=== PATIENT | female | born 1935 | race Caucasian/White ===

== ENCOUNTER 2018-12-29 15:28 | Outpatient (CLI) | payer MEDICARE, MEDICAID ==
[2018-12-29 19:42] LABS: ALANINE AMINOTRANSFERASE 36 U/L (12-78); ALBUMIN 3.8 g/dL (3.4-5.0); ALKALINE PHOSPHATASE 81 U/L (46-116); ASPARTATE AMINOTRANSFERASE 38 U/L (15-37); BILIRUBIN,TOTAL 0.5 mg/dL (0.2-1.0); CALCIUM, SERUM 10.2 mg/dL (8.5-10.1); CARBON DIOXIDE 27 mmol/L (21-32); CHLORIDE 97 mmol/L (98-107); CREATININE 1.5 mg/dL (0.6-1.3); GLUCOSE 95 mg/dL (74-106); POTASSIUM 3.9 mmol/L (3.5-5.1); SODIUM SERUM 137 mmol/L (136-145); TOTAL PROTEIN, SERUM 7.9 g/dL (6.4-8.2); UREA NITROGEN, BLOOD 35 mg/dL (7-18)
== END 2018-12-29 23:59 | disposition home or self-care (01) ==
LOC: LAB 15:28
PROVIDERS: ATTEND Internal Medicine Interventional Cardiology
DX: I10 Essential (primary) hypertension (principal)
CPT/HCPCS: 36415; 80053-TC

== ENCOUNTER 2019-01-12 12:02 | Outpatient (CLI) | payer MEDICARE, MEDICAID ==
[2019-01-12 12:55] LABS: ALANINE AMINOTRANSFERASE 21 U/L (12-78); ALBUMIN 3.5 g/dL (3.4-5.0); ALKALINE PHOSPHATASE 92 U/L (46-116); ASPARTATE AMINOTRANSFERASE 12 U/L (15-37); BILIRUBIN,TOTAL 0.3 mg/dL (0.2-1.0); CALCIUM, SERUM 9.7 mg/dL (8.5-10.1); CARBON DIOXIDE 24 mmol/L (21-32); CHLORIDE 101 mmol/L (98-107); CREATININE 1.3 mg/dL (0.6-1.3); GLUCOSE 167 mg/dL (74-106); POTASSIUM 4.1 mmol/L (3.5-5.1); SODIUM SERUM 137 mmol/L (136-145); TOTAL PROTEIN, SERUM 7.6 g/dL (6.4-8.2); UREA NITROGEN, BLOOD 16 mg/dL (7-18)
== END 2019-01-12 23:59 | disposition home or self-care (01) ==
LOC: LAB 12:02
PROVIDERS: ATTEND Internal Medicine Interventional Cardiology
DX: I10 Essential (primary) hypertension (principal)
CPT/HCPCS: 36415; 80053-TC

== ENCOUNTER 2020-06-08 00:14 | Inpatient (IN) | payer MEDICARE, OTHER ==
[~2020-06-08] VITALS: Ht 165.1 cm; Wt 72.6 kg
[2020-06-08] MEDS ORDERED: DILTIAZEM HCL 25 MG IV ONE (00:28)
[2020-06-08] MEDS ORDERED: DILTIAZEM HCL 50 MG IV IV ONE (00:30)
--- NOTE | 2020-06-08 00:34 | NUR ---
[facility] [phone]
[2020-06-08 00:37] LABS: ABG BASE EXCESS -6.6 mmol/L; ABG OXYGEN SATURATION 95.2 % (92.0-98.5); ABG PCO2 24.7 mmHg (35.0-45.0); ABG PH 7.429 (7.350-7.450); ABG PO2 81.4 mmHg (75.0-100.0); AaDO2 606.9 mmHg; COHb 0.4 % (0.5-1.5); MetHb 0.2 % (0.0-1.5); O2Hb 94.6 % (94.0-97.0); SITE, ABG Right Radial; VENT MODE, BG 15 L NRB
[2020-06-08 00:37] LABS: BASOPHILS % (AUTO) 0.2 % (0.0-2.0); EOSINOPHILS % (AUTO) 0.1 % (0.0-6.0); HEMATOCRIT 39 % (33-45); HEMOGLOBIN 12.3 g/dL (11.5-14.8); LYMPHOCYTES # (AUTO) 2.1 /CMM (0.8-4.8); LYMPHOCYTES % (AUTO) 18.2 % (20.0-44.0); MEAN CORPUSCULAR HGB CONC 32 g/dl (31.0-36.0); MEAN CORPUSCULAR VOLUME 80 fL (82-100); MONOCYTES # (AUTO) 0.6 /CMM (0.1-1.30); MONOCYTES % (AUTO) 5.6 % (2.0-12.0); NEUTROPHILS # (AUTO) 8.8 /CMM (1.8-8.9); NEUTROPHILS % (AUTO) 75.9 % (43.0-81.0); PLATELET COUNT (AUTO) 270 /CMM (150-450); WHITE BLOOD COUNT (AUTO) 11.6 K/uL (4.3-11.0)
--- NOTE | 2020-06-08 00:39 | NUR ---
PATIENT'S BLOOD, CULTURES, COVID PCR, COVID ANTIGEN, RAPID INFLUENZA SWAB, AND URINE COLLECTED AND SENT TO THE LAB.
--- NOTE | 2020-06-08 00:50 | NUR ---
PATIENT CAME TO ER BED 5 C/O SOB WITH 70% OXYGEN SATURATION ON ROOM AIR IN THE FIELD. PATIENT IS PLACED ON NON-REBREATHER UPON ARRIVAL. PATIENT'S 2 FAMILY MEMBERS ARE POSITIVE FOR CORONAVIRUS. FOR PATIENT IS SAUTRATING AT 97% ON NON-REBREATHER. PATIENT IS BREATHING EVENLY AND UNLABORED W/ NO C/O. PATIENT IS AAOX4. PATIENT IS CONNECTED TO THE MONITOR.
--- NOTE | 2020-06-08 01:16 | NUR ---
Call from lab. Rapid covid positive.
[2020-06-08 01:30] LABS: CALCIUM, SERUM 9.2 mg/dL (8.5-10.1); CARBON DIOXIDE 19 mmol/L (21-32); CHLORIDE 97 mmol/L (98-107); CREATININE 1.3 mg/dL (0.6-1.3); GLUCOSE 205 mg/dL (74-106); POTASSIUM 3.8 mmol/L (3.5-5.1); SODIUM SERUM 135 mmol/L (136-145); UREA NITROGEN, BLOOD 19 mg/dL (7-18)
[2020-06-08 01:44] LABS: ALANINE AMINOTRANSFERASE 22 U/L (12-78); ALBUMIN 3.2 g/dL (3.4-5.0); ALKALINE PHOSPHATASE 96 U/L (46-116); ASPARTATE AMINOTRANSFERASE 31 U/L (15-37); B-TYPE NATRIURETIC PEPTIDE 1716 PG/ML (0-125); BILIRUBIN,TOTAL 0.5 mg/dL (0.2-1.0); TOTAL PROTEIN, SERUM 7.9 g/dL (6.4-8.2)
--- NOTE | 2020-06-08 04:40 | NUR ---
PATIENT IS AWAKE, ASKING FOR WATER AND BLANKET. PATIENT IS BREATHING EVENLY AND UNLABROED ON 15L OF NRB. CONNECTED TO MONITOR. WILL CONTINUE TO MONITOR CLOSELY
[2020-06-08 05:06] LABS: BILIRUBIN,DIRECT 0.3 mg/dL (0.0-0.2)
--- NOTE | 2020-06-08 06:41 | NUR ---
PATIENT IS AWAKE. VSS. CONNECTED TO MONITOR. WILL CONTINUE TO MONITOR CLOSELY.
[2020-06-08 06:57] LABS: BILIRUBIN,URINE NEGATIVE (NEGATIVE); COLOR,URINE YELLOW (YELLOW); LEUKOCYTE ESTERASE ,URINE NEGATIVE (NEGATIVE); NITRITE, URINE NEGATIVE (NEGATIVE); PH,URINE 5.5 (5.0-8.0); PROTEIN,URINE TRACE mg/dl (NEGATIVE); UGLUCOSE NEGATIVE (NEGATIVE); UROBILINOGEN,URINE 0.2 EU/dL (0.2)
[2020-06-08] MEDS ORDERED: HYDROCODONE/APAP 5/325MG TABLET PO PRN (07:00)
[2020-06-08] MEDS ORDERED: MAG HYDROX/AL HYDROX/SIMETH 30 ML UDC PO PRN (07:00)
[2020-06-08] MEDS ORDERED: ACETAMINOPHEN 325 MG TABLET PO PRN (07:00)
[2020-06-08] MEDS ORDERED: Z GUARD REMEDY 2 OZ OINT TP PRN (07:00)
[2020-06-08] MEDS ORDERED: ZOLPIDEM TARTRATE 5 MG TABLET PO PRN (07:00)
[2020-06-08] MEDS ORDERED: ONDANSETRON HCL/PF 4 MG/2 ML VIAL IVP PRN (07:00)
[2020-06-08] MEDS ORDERED: MAGNESIUM HYDROXIDE 30 ML UDC PO PRN (07:00)
[2020-06-08 07:14] LABS: BACTERIA,URINE None seen /HPF (None Seen); RBC,URINE NONE SEEN /HPF (0-2); SQUAMOUS EPITHELIAL CELL,UR Few /HPF (None Seen); WBC,URINE NONE SEEN /HPF (0-3)
--- NOTE | 2020-06-08 07:59 | NUR ---
REPORT GIVEN TO DENG ESPOSITO FOR LUCI.
[2020-06-08] MEDS ORDERED: CEFEPIME 2 GM in IV D5W 100 ML IV SCH (08:00)
[2020-06-08] MEDS: DEXAMETHASONE SOD PHOSPHATE 4 MG/ML VIAL IV SCH (08:39)
--- NOTE | 2020-06-08 08:41 | NUR ---
COLLECTIONS ASSISTANT AT BEDSIDE FOR ECHOCARDIOGRAM
[2020-06-08] MEDS: DOXYCYCLINE HYCLATE (100 MG) 100 MG TABLET PO SCH ×2 (08:43→22:04)
[2020-06-08] MEDS ORDERED: APIXABAN 5 MG TABLET PO SCH (09:00)
[2020-06-08] MEDS: ASPIRIN EC 81 MG TABLET.DR PO SCH (09:04)
[2020-06-08] MEDS ORDERED: METF-440 PO (09:37)
[2020-06-08] MEDS ORDERED: RIVA10TA PO (09:37)
[2020-06-08] MEDS ORDERED: POTA10CA43 PO (09:37)
[2020-06-08] MEDS ORDERED: TIOT18CA3 IH (09:37)
[2020-06-08] MEDS ORDERED: LOSA100T31 PO (09:37)
[2020-06-08] MEDS ORDERED: DILT-2 PO (09:37)
[2020-06-08] MEDS ORDERED: GLIP5TAB13 PO (09:37)
[2020-06-08] MEDS ORDERED: FURO-145 PO (09:37)
[2020-06-08] MEDS ORDERED: FLUT1BLS IH (09:37)
[2020-06-08] MEDS ORDERED: VANCOMYCIN 1 GM in IV D5W 250ml IV SCH (10:00)
[2020-06-08] MEDS ORDERED: DEXTROSE 50%-WATER 50 ML DISP.SYRIN IV PRN (12:00)
[2020-06-08] MEDS: DILTIAZEM HCL IV 125 MG in IV NS 0.9% 100 ML IV PRN (12:27)
--- NOTE | 2020-06-08 12:28 | NUR ---
ASSUMED CARE. MEDICATED PER MD ORDER, PT JESSICA WELL. WILL CONT TO MONITOR.
--- NOTE | 2020-06-08 12:30 | NUR ---
CALLED PHARMACY FOR MEDS
[2020-06-08 13:03] LABS: BASOPHILS % (AUTO) 0.1 % (0.0-2.0); HEMATOCRIT 37 % (33-45); HEMOGLOBIN 12.2 g/dL (11.5-14.8); LYMPHOCYTES # (AUTO) 0.3 /CMM (0.8-4.8); LYMPHOCYTES % (AUTO) 3.6 % (20.0-44.0); MEAN CORPUSCULAR HGB CONC 33 g/dl (31.0-36.0); MEAN CORPUSCULAR VOLUME 79 fL (82-100); MONOCYTES # (AUTO) 0.2 /CMM (0.1-1.30); MONOCYTES % (AUTO) 2.3 % (2.0-12.0); NEUTROPHILS # (AUTO) 8.3 /CMM (1.8-8.9); PLATELET COUNT (AUTO) 212 /CMM (150-450); RED BLOOD CELL COUNT(AUTO) 4.68 MIL/uL (4.0-5.2); WHITE BLOOD COUNT (AUTO) 8.8 K/uL (4.3-11.0)
[2020-06-08] MEDS: BLOOD SUGAR DIAGNOSTIC 1 EACH STRIP IN SCH ×3 (13:27→22:04)
[2020-06-08] MEDS ORDERED: IPRATROPIUM NEB FS 0.5 MG/2.5 ML AMPUL.NEB NEB SCH (13:30)
--- NOTE | 2020-06-08 13:30 | NUR ---
called pharmacy for meds.
[2020-06-08 14:26] LABS: CREATININE 0.9 mg/dL (0.6-1.3); POTASSIUM 4.1 mmol/L (3.5-5.1)
[2020-06-08] MEDS: LOSARTAN POTASSIUM 50 MG TABLET PO SCH (15:07)
[2020-06-08] MEDS: IPRATROPIUM BROMIDE 14 GM INHALER (or 12.9 GM) IH SCH ×2 (15:09→19:47)
[2020-06-08] MEDS: INSULIN REGULAR, HUMAN 100 UNIT/ML 3 ML VIAL SQ PRN ×3 (15:09→22:16)
--- NOTE | 2020-06-08 15:11 | NUR ---
PLACED ON HI IFEOMA 40L PER ERMD ORDER, PT JESSICA WELL. WILL CONT TO MONITOR.
--- NOTE | 2020-06-08 17:15 | NUR ---
PT AWAKE, ON HI IFEOMA JESSICA WELL. WILL CONT TO MONITOR.
--- NOTE | 2020-06-08 19:12 | NUR ---
PT AWAKE, DRINKING WATER, WILL CONT TO MONITOR.
[2020-06-08] MEDS: DILTIAZEM HCL 30 MG TABLET PO SCH (20:00)
--- NOTE | 2020-06-08 20:10 | NUR ---
report given to Jerry
--- NOTE | 2020-06-08 20:46 | NUR ---
PT WAS TRANSFERED TO 110 UNDER ACLS
[2020-06-08 21:00] VITALS: BP 142/80
[2020-06-08 22:00] VITALS: BP 130/79
--- NOTE | 2020-06-08 22:00 | NUR ---
cardizem op not given because pt is on cardizem drip at this moment will cont to monitor
[2020-06-08 23:00] VITALS: BP 149/81
[2020-06-09] VITALS (21 sets, daily range): BP systolic 104–170; BP diastolic 58–91
[2020-06-09] MEDS: DILTIAZEM HCL IV 125 MG in IV NS 0.9% 100 ML IV PRN (00:58)
[2020-06-09] MEDS: IPRATROPIUM BROMIDE 14 GM INHALER (or 12.9 GM) IH SCH ×4 (01:30→19:30)
[2020-06-09] MEDS: DILTIAZEM HCL 30 MG TABLET PO SCH ×3 (02:00→10:34)
--- NOTE | 2020-06-09 02:30 | NUR ---
CARDIZEM NOT GIVEN BECAUSE PT STILL ON CARDIZEM DRIP WILL CONT TO MONITOR
--- NOTE | 2020-06-09 07:20 | NUR ---
RN CLOSING NOTES PATIENT IB BED SLEEPING, EASILY AROUSABLE BY VERBAL STIMULI. ABLE TO MAKE NEEDS KNOWN. CONTINUE ON NONREBREATHER AND HIGH FLOW O2 AT 40 L FIO2 100 %. SATING AT 94 %. NO RESPIRATORY DISTRESS NOTED. DENIES ANY PAIN. ON TELE MONITOR, AFIB HR 88. PATIENT CONTINUE ON CARDIZEM DRIP 7.5 CC/HR. VS STABLE. AMAYA CATHETER INDWELLING WELL, PATENT AND IN PLACE. WITH CLEAR URINE OUTPUT. ALL SAFETY MEASURES WERE IMPLEMENTED PER PROTOCOL. SIDE RAILS UP X 2. BED LOCKED IN LOWEST POSITION. CALL LIGHT WITHIN REACH. ENDORSED TO NEXT SHIFT NURSE FOR LUCI.
[2020-06-09 07:28] LABS: BASOPHILS % (AUTO) 0.3 % (0.0-2.0); EOSINOPHILS % (AUTO) 0.9 % (0.0-6.0); HEMATOCRIT 38 % (33-45); HEMOGLOBIN 12.3 g/dL (11.5-14.8); LYMPHOCYTES # (AUTO) 0.5 /CMM (0.8-4.8); LYMPHOCYTES % (AUTO) 4.2 % (20.0-44.0); MEAN CORPUSCULAR HGB CONC 33 g/dl (31.0-36.0); MEAN CORPUSCULAR VOLUME 79 fL (82-100); MONOCYTES # (AUTO) 0.6 /CMM (0.1-1.30); MONOCYTES % (AUTO) 4.8 % (2.0-12.0); NEUTROPHILS # (AUTO) 10.6 /CMM (1.8-8.9); NEUTROPHILS % (AUTO) 89.8 % (43.0-81.0); PLATELET COUNT (AUTO) 263 /CMM (150-450); RED BLOOD CELL COUNT(AUTO) 4.75 MIL/uL (4.0-5.2); WHITE BLOOD COUNT (AUTO) 11.8 K/uL (4.3-11.0)
[2020-06-09 07:45] LABS: CREATININE 0.8 mg/dL (0.6-1.3); MAGNESIUM 2.3 mg/dL (1.8-2.4); PHOSPHORUS 2.9 mg/dL (2.5-4.9)
--- NOTE | 2020-06-09 08:00 | NUR ---
ICU MIKE CASTLE RN NOTE PATIENT IN BED WITH HIGH FLOEW AND NONREBREATHER MASK SATURATION 87% DR PANG NOTIFIED ON TELE MONITOR AFIB 102 DR SÁNCHEZ NOTIFIED RT AC HL INTACT LT HAND INTACT , ON CARDIZEM DRIP ORDERED PER DR SÁNCHEZ OK TO GIVE CARDIZEM PO ALERT ORIENTED X4 BED IN LOWEST AND LOCKED POSITION , WILL MONITOR
[2020-06-09 08:03] LABS: CALCIUM, SERUM 9.3 mg/dL (8.5-10.1)
[2020-06-09 08:53] LABS: ABG BASE EXCESS -1.9 mmol/L; ABG OXYGEN SATURATION 84.3 % (92.0-98.5); ABG PCO2 30.6 mmHg (35.0-45.0); ABG PH 7.455 (7.350-7.450); ABG PO2 46.9 mmHg (75.0-100.0); AaDO2 635.5 mmHg; COHb 0.3 % (0.5-1.5); MetHb 0.3 % (0.0-1.5); O2Hb 83.8 % (94.0-97.0); SITE, ABG Right Radial; VENT MODE, BG HFNC 40L 100% +NRB
[2020-06-09] MEDS ORDERED: FUROSEMIDE 20 MG TABLET PO SCH (09:00)
[2020-06-09] MEDS: FLUTICASONE/VILANTEROL 1 EACH BLST.W.DEV IH SCH (09:00)
[2020-06-09] MEDS ORDERED: TIOTROPIUM BROMIDE 6 CAP/BOX CAP.W.DEV IH SCH (09:00)
[2020-06-09] MEDS: ASPIRIN EC 81 MG TABLET.DR PO SCH (09:15)
[2020-06-09] MEDS: DOXYCYCLINE HYCLATE (100 MG) 100 MG TABLET PO SCH ×2 (09:15→21:34)
[2020-06-09] MEDS: DEXAMETHASONE SOD PHOSPHATE 4 MG/ML VIAL IV SCH (09:15)
[2020-06-09] MEDS: LOSARTAN POTASSIUM 50 MG TABLET PO SCH (09:16)
[2020-06-09] MEDS: BLOOD SUGAR DIAGNOSTIC 1 EACH STRIP IN SCH ×4 (09:48→21:33)
--- NOTE | 2020-06-09 10:00 | NUR ---
ICU OVER FLOW RN NOTE ABG DONE DR PANG AWARE RESULT STILL SATURATION 78%ASSITED TO BE ON SIDE
--- NOTE | 2020-06-09 10:44 | NUR ---
ICU OVER FLOW RN NOTE PER DR GARG ASBESTOS CLOTH INSPECTOR OK TO GIVE CARDIZEM AWARE TROPONIN 1.435
[2020-06-09] MEDS ORDERED: AMIODARONE 150 MG in IV D5W 100 ML IV ONE (11:00)
--- NOTE | 2020-06-09 11:12 | NUR ---
marilyn whitaker informed of (+) pcr
[2020-06-09 11:21] LABS: ABG BASE EXCESS -1.6 mmol/L; ABG OXYGEN SATURATION 83.7 % (92.0-98.5); ABG PCO2 32.4 mmHg (35.0-45.0); ABG PH 7.443 (7.350-7.450); ABG PO2 45.8 mmHg (75.0-100.0); AaDO2 634.8 mmHg; COHb 0.4 % (0.5-1.5); MetHb 0.3 % (0.0-1.5); O2Hb 83.1 % (94.0-97.0); SITE, ABG Right Radial; VENT MODE, BG HFNC 40L 100% +NRB
[2020-06-09] MEDS: FUROSEMIDE 20 MG/2 ML VIAL IV SCH ×2 (11:33→17:06)
[2020-06-09] MEDS ORDERED: HEPARIN INFUSION/D5W 500 ML IV PRN (13:00)
[2020-06-09] MEDS: INSULIN REGULAR, HUMAN 100 UNIT/ML 3 ML VIAL SQ PRN ×3 (13:13→21:39)
[2020-06-09] MEDS: AMIODARONE 450 MG in IV D5W 250 ML IV PRN ×2 (13:37→23:55)
--- NOTE | 2020-06-09 13:59 | NUR ---
ICU OVER FLOW RN NOTE CALLED X3 FOR INHALER SPOKE WITH PHARMACY STILL DID NOT BRING IT
--- NOTE | 2020-06-09 14:15 | NUR ---
ICU OVER FLOW DR SÁNCHEZ NOTIFIED TROP 1.730 WITH ORDER HEPARIN DRIP AND AMIODARONE DRIP WILL START Addendum: 06/09/20 at 1710 by KATHERYN SHER RN [address] SÁNCHEZ NO BOLUS FOR HEPARIN WILL START DRIP PER PROTOCOL
[2020-06-09] MEDS ORDERED: REMDESIVIR (CHARGED) 200 MG, *LOADING DOSE 1 EA in IV NS 0.9% 210 ML IV ONE (16:00)
[2020-06-09] MEDS ORDERED: RIVAROXABAN 15 MG TABLET PO SCH (17:00)
--- NOTE | 2020-06-09 17:14 | NUR ---
RESEEVIR NOT ARABLE YET Addendum: 06/09/20 at 1745 by KATHERYN SHER RN called again pharmacy rezedvir not avalable yet
[2020-06-09] MEDS ORDERED: CEFTRIAXONE 1 G in IV D5W 50 ML IV SCH (19:00)
[2020-06-09] MEDS ORDERED: CEFAZOLIN 0 GM ONE (19:30)
--- NOTE | 2020-06-09 19:33 | NUR ---
n agricultural equipment sales engineer note overflow with high flow of o2, saturation 80% will cont to encourage to be on side
[2020-06-09] MEDS ORDERED: CEFTRIAXONE 1 G VIAL ONE (19:34)
--- NOTE | 2020-06-09 23:00 | NUR ---
ICU-OF/STUDIO OPERATOR SPOKE WITH DR. DE LA O GAVE UPDATE ON PTS STATUS. MAXED OUT ON HIGH FLOW 40L/MIN 100% FIO2 WITH NON-REBREATHER. ORDERS GIVEN TO INTUBATE PT WITH VENT SETTINGS. DR. PLASENCIA AT BEDSIDE. DR. PLASENCIA WANTED ABG FOR COMPARISON AND SPOKE WITH THE PT REGARDING INTUBATION WITH GERARDO RT TO TRANSLATE. PT NOT AGREEABLE WITH INTUBATION AT THIS TIME. PT REPOSITIONED SATURATION CAME UP TO 82%. WILL CONTINUE TO MONITOR CLOSELY.
[2020-06-09 23:35] LABS: ABG BASE EXCESS -3.9 mmol/L; ABG OXYGEN SATURATION 76.1 % (92.0-98.5); ABG PCO2 31.6 mmHg (35.0-45.0); ABG PH 7.413 (7.350-7.450); ABG PO2 40.6 mmHg (75.0-100.0); AaDO2 640.8 mmHg; COHb 0.4 % (0.5-1.5); O2Hb 75.8 % (94.0-97.0); SITE, ABG Left Radial; VENT MODE, BG HFNC 40LPM 100% + NRB
--- NOTE | 2020-06-09 23:40 | NUR ---
2340 PATIENT REMAINS AWAKE AND VERBALLY RESPONSIVE. GETS SHORT OF BREATH WHEN TALKING BUT NOT IN RESPIRATORY DISTRESS. REPOSITIONED AND TURNED TO HER LEFT SIDE FOR BETTER OXYGENATION. REMINDED PATIENT TO KEEP ON HER SIDE TOLERATED. O2 SATURATION IMPROVED TO 86%. PATIENT BEING CLOSELY MONITORED.
[2020-06-10] VITALS (13 sets, daily range): BP systolic 138–187; BP diastolic 74–132
--- NOTE | 2020-06-10 00:30 | NUR ---
0030 PATIENT SLEEPING ON HER LEFT SIDE. O2 SATURATION NOTED AT 91%. REMAINS ON HIGH FLOW O2 AT 100%. HOB ELEVATED FOR MAX OXYGENATION.
[2020-06-10] MEDS: IPRATROPIUM BROMIDE 14 GM INHALER (or 12.9 GM) IH SCH (01:30)
--- NOTE | 2020-06-10 04:00 | NUR ---
ICU-OF/SUPERINTENDENT MARINE PT FOUND WITH MIDLINE OUT. BED BATH GIVEN LINENS CHANGED. WILL CONTINUE TO MONITOR.
--- NOTE | 2020-06-10 05:30 | NUR ---
ICU-OF/ASSOCIATE STORE LEADER ICU RIGHT OF WAY CUTTER RENEE PLACED 2 IVS ON PT. RIGHT AC #20 AND RIGHT FA #20. PT TOLERATED WELL WILL CONTINUE TO MONITOR.
--- NOTE | 2020-06-10 07:05 | NUR ---
EXHIBIT CLEANER OPENING NOTES RECEIVED PT AWAKE IN BED AT THIS TIME.AOX4. PT NOTED ON HIGH FLOW OXYGEN AND NON REBREATHER.IV ACCESS NOTED IN R-HAND G#20, RAC G#20, RFA G#20, ALL INTACT, PATENT AND FLUSHING WELL. SAFETY PRECAUTION IN PLACE AND MAINTAINED AT ALL TIMES. BED IN LOWEST LOCKED POSITION, HOB ELEVATED, SIDE RAILS UP X 2, CALL LIGHT AND TABLE WITHIN REACH. WILL CONTINUE TO MONITOR
[2020-06-10 07:06] LABS: BASOPHILS % (AUTO) 0.1 % (0.0-2.0); HEMATOCRIT 38 % (33-45); HEMOGLOBIN 12.4 g/dL (11.5-14.8); LYMPHOCYTES # (AUTO) 0.3 /CMM (0.8-4.8); LYMPHOCYTES % (AUTO) 1.7 % (20.0-44.0); MEAN CORPUSCULAR HGB CONC 32 g/dl (31.0-36.0); MEAN CORPUSCULAR VOLUME 78 fL (82-100); MONOCYTES # (AUTO) 0.9 /CMM (0.1-1.30); MONOCYTES % (AUTO) 5.6 % (2.0-12.0); NEUTROPHILS # (AUTO) 14.8 /CMM (1.8-8.9); NEUTROPHILS % (AUTO) 92.6 % (43.0-81.0); PLATELET COUNT (AUTO) 324 /CMM (150-450); RED BLOOD CELL COUNT(AUTO) 4.89 MIL/uL (4.0-5.2)
[2020-06-10 07:28] LABS: D-DIMER 2.51 mg/L(FEU (0.17-0.50)
[2020-06-10 07:49] LABS: ALBUMIN 2.7 g/dL (3.4-5.0); BILIRUBIN,DIRECT 0.3 mg/dL (0.0-0.2); BILIRUBIN,TOTAL 0.6 mg/dL (0.2-1.0); CALCIUM, SERUM 9.4 mg/dL (8.5-10.1); CREATININE 1.1 mg/dL (0.6-1.3); PHOSPHORUS 3.5 mg/dL (2.5-4.9); POTASSIUM 3.8 mmol/L (3.5-5.1); TOTAL PROTEIN, SERUM 7.7 g/dL (6.4-8.2)
[2020-06-10] MEDS: BLOOD SUGAR DIAGNOSTIC 1 EACH STRIP IN SCH ×2 (08:03→11:46)
[2020-06-10] MEDS: LOSARTAN POTASSIUM 50 MG TABLET PO SCH (09:22)
[2020-06-10] MEDS: DOXYCYCLINE HYCLATE (100 MG) 100 MG TABLET PO SCH (09:22)
[2020-06-10] MEDS: ASPIRIN EC 81 MG TABLET.DR PO SCH (09:22)
[2020-06-10] MEDS: FUROSEMIDE 20 MG/2 ML VIAL IV SCH (09:23)
[2020-06-10] MEDS: DEXAMETHASONE SOD PHOSPHATE 4 MG/ML VIAL IV SCH (09:23)
[2020-06-10] MEDS: FLUTICASONE/VILANTEROL 1 EACH BLST.W.DEV IH SCH (09:24)
[2020-06-10] MEDS: INSULIN REGULAR, HUMAN 100 UNIT/ML 3 ML VIAL SQ PRN (09:25)
[2020-06-10] MEDS ORDERED: AMIODARONE 450 MG in IV D5W 250 ML IV PRN (10:00)
[2020-06-10] MEDS ORDERED: AMIODARONE 150 MG in IV D5W 100 ML IV ONE (10:00)
--- NOTE | 2020-06-10 10:00 | NUR ---
PER DR MADRIGAL, ADMINISTER A BOLUS OF AMIODARONE 150MG IV ONCE. ORDERS READ BACK AND CARRIED OUT. WILL CONTINUE TO MONITOR
[2020-06-10] MEDS ORDERED: SODIUM BICARBONATE SYR 50 MEQ/50 ML DISP.SYRIN ONE ×2 (11:51→12:20)
[2020-06-10] MEDS ORDERED: CALCIUM CHLORIDE 1,000 MG/10 ML DISP.SYRIN ONE (11:51)
[2020-06-10] MEDS ORDERED: EPINEPHRINE (1:10,000) SYRINGE 1 MG/10 ML DISP.SYRIN ONE ×2 (11:51→12:20)
[2020-06-10] MEDS ORDERED: BLOOD SUGAR DIAGNOSTIC 1 EACH STRIP VI SCH (12:00)
[2020-06-10] MEDS ORDERED: DEXTROSE 50%-WATER 50 ML DISP.SYRIN IV PRN (12:00)
[2020-06-10] MEDS ORDERED: *INSULIN REGULAR(HUMULIN R)HUM 100 UNIT/ML VIAL SQ PRN (12:00)
[2020-06-10] MEDS ORDERED: INSULIN REGULAR, HUMAN 100 UNIT/ML 3 ML VIAL SQ PRN (12:00)
--- NOTE | 2020-06-10 14:00 | NUR ---
@1100 AWAKE IN BED AND REQUESTED NURSE TO PULL UP HER SHEET @1105 NURSE NOTED PT WITH CLOSED EYES. NURSE SPOKE TO PATIENT AND CALLED PT, PT UNRESPONSIVE @1108, HIGH QUALITY CHEST COMPRESSIONS STARTED AND PREET RAI WAS CALLED. PREET RAI TEAM CONTINUED PERFORMING ACLS AND BLS WITH HIGH QUALITY CHEST COMPRESSIONS. PT REGAINED PULSE AND WAS INTUBATED @11: 40, SECOND PREET RAI CALLED, ACLS AND BLS WITH HIGH QUALITY CHEST COMPRESSIONS WITH MINIMAL INTERUPTIONS PERFORMED. PT REGAINED PULSE @12:00, SECOND PREET RAI CALLED, ACLS AND BLS WITH HIGH QUALITY CHEST COMPRESSIONS WITH MINIMAL INTERUPTIONS PERFORMED. @12:17, PT PRONOUNCED @12:30 ASPEN REDDY ([phone]), PTS FAMILY CONTACT WAS NOTIFIED BY DR PRINCESS PADILLA, CHARGE NURSE AND DR SEXTON AWARE DONATION MADE AWARE. CASE # [id number] POST MORTEM CARE PERFORMED, IV ASSESS REMOVED PT [facility] WITH ALL BELONGINGS
[2020-06-10] MEDS ORDERED: REMDESIVIR (CHARGED) 100 MG in IV NS 0.9% 230 ML IV SCH (16:00)
== END 2020-06-10 12:17 | disposition expired | DRG 871 ==
LOC: ER 00:14 → TRANSITION 01:51 → TELE-TD 19:50 → ICUOV 19:55
PROVIDERS: ADMIT Nurse Practitioner Acute Care; ATTEND Student in an Organized Health Care Education/Training Program
PROC: XW033E5 Introduction of Remdesivir Anti-infective into Peripheral Vein, Percutaneous Approach, New Technology Group 5 (ICD-10-PCS; principal; 2020-06-09)
PROC: 05HY33Z Insertion of Infusion Device into Upper Vein, Percutaneous Approach (ICD-10-PCS; 2020-06-09)
PROC: 5A12012 Performance of Cardiac Output, Single, Manual (ICD-10-PCS; 2020-06-10)
PROC: 0BH18EZ Insertion of Endotracheal Airway into Trachea, Via Natural or Artificial Opening Endoscopic (ICD-10-PCS; 2020-06-10)
PROC: 05H633Z Insertion of Infusion Device into Left Subclavian Vein, Percutaneous Approach (ICD-10-PCS; 2020-06-10)
PROC: B547ZZA Ultrasonography of Left Subclavian Vein, Guidance (ICD-10-PCS; 2020-06-10)
DX: A41.89 Other specified sepsis (principal); U07.1 COVID-19; J12.89 Other viral pneumonia; N17.0 Acute kidney failure with tubular necrosis; I21.A1 Myocardial infarction type 2; J96.01 Acute respiratory failure with hypoxia; E44.1 Mild protein-calorie malnutrition; I48.20 Chronic atrial fibrillation, unspecified; E87.2 Acidosis; J44.0 Chronic obstructive pulmonary disease with (acute) lower respiratory infection; I42.9 Cardiomyopathy, unspecified; Z95.0 Presence of cardiac pacemaker; E11.9 Type 2 diabetes mellitus without complications; I27.20 Pulmonary hypertension, unspecified; D72.829 Elevated white blood cell count, unspecified; E88.09 Other disorders of plasma-protein metabolism, not elsewhere classified; I11.0 Hypertensive heart disease with heart failure; I50.9 Heart failure, unspecified; E11.65 Type 2 diabetes mellitus with hyperglycemia; Z68.26 Body mass index [BMI] 26.0-26.9, adult
CPT/HCPCS: 36415; 36600; 71045-TC; 80048-TC; 80053-TC; 80061-TC; 80076-TC; 81001; 82248-TC; 82550-TC; 82728-TC; 82803-TC; 82962-TC; 83605-TC; 83615-TC; 83735-TC; 83880; 84100-TC; 84443-TC; 84484-TC; 85025-TC; 85378-TC; 85610-TC; 85730-TC; 86140-TC; 86850-TC; 87040-TC; 87081-TC; 87086-TC; 93307-TC; 94760-TC; 94762-TC; 94799-TC; 99082-TC; A4216; A4217; C9803; G0378; J0171; J0282; J0690; J0692; J0696; J1100; J1644; J1815; J1940; J3370; J3490; J7030; J7050; J7060; U0003